=== PATIENT | female | born 1995 | race Two or more races ===

== ENCOUNTER 2024-02-03 10:38 | Emergency (ER) | payer MEDICAID, SELFPAY ==
[2024-02-03 11:01] VITALS: BP 123/87; PULSE 83; RESP 19; TEMP 36.9; O2SAT 98; BMI 27.8
--- NOTE | 2024-02-03 11:09 | XR_ITS ---
Examination: Abdomen sonogram, Limited Date and time of exam: February 03, 2024 1203 hours INDICATIONS: Onset epigastric pain radiating to the back beginning last night and worse today Technique: Real-time lechuga scale transabdominal sonographic images of the upper abdomen obtained. Findings: Multiple tiny gallstones Gallbladder wall is thickened 0.8 cm with edema Common bile duct 0.3 cm Pancreatic head 2.3 cm Liver 12.9 cm no focal liver lesions Normal hepatopedal portal venous oh Patent IVC IMPRESSION: Acute calculus cholecystitis, consider MRCP follow-up
--- NOTE | 2024-02-03 11:09 | PD.EDRME ---
Rapid Medical Screening Exam RME Arrival date/time: 02/03/24 10:38 28-year-old female presents to the emergency department complains of upper abdominal pain Chief Complaint: Abdominal Pain Time Seen by Provider: 02/03/24 10:41 Vital signs: Vital Signs Temperature 98.4 F 02/03/24 11:01 Pulse Rate 83 02/03/24 11:01 Respiratory Rate 19 02/03/24 11:01 Blood Pressure 123/87 H 02/03/24 11:01 Pulse Oximetry (%) 98 02/03/24 11:01 Oxygen Delivery Method Room Air 02/03/24 11:01
[2024-02-03 11:43] LABS: Basophils # (Auto) 0.1 Thou/mm3 (0.0-0.2); Basophils % (Auto) 1 % (0-2.5); Eosinophils # (Auto) 0.1 Thou/mm3 (0.0-0.5); Eosinophils % (Auto) 1 % (0-10); Hematocrit 40.6 % (36.0-46.0); Hemoglobin 13.7 g/dL (12.0-16.0); Immature Granulocytes % (Auto) 0 % (0-0); Immature Granulocytes Auto 0.03 Thou/mm3 (0.00-0.00); Lymphocytes # (Auto) 1.4 Thou/mm3 (1.0-4.8); Lymphocytes % (Auto) 16 % (10-50); Mean Corpuscular HGB Conc 33.7 g/dl (31.0-37.0); Mean Corpuscular Hemoglobin 29.2 pg (25.0-35.0); Mean Corpuscular Volume 87 fL (80-100); Monocytes # (Auto) 0.5 Thou/mm3 (0.0-0.8); Monocytes % (Auto) 5 % (0-12); Neutrophils # (Auto) 6.6 Thou/mm3 (1.8-7.7); Neutrophils % (Auto) 76 % (37-80); Nucleated Red Blood Cell % 0 /100 WBC (0); Platelet Count 425 Thou/mm3 (140-440); RDW Standard Deviation 38.5 fL (36.4-46.3); Red Blood Count 4.69 Miln/mm3 (4.00-5.20); White Blood Count 8.7 Thou/mm3 (3.6-11.0)
[2024-02-03 12:01] LABS: Alanine Aminotransferase 13 U/L (10-49); Albumin, Serum 4.8 gm/dL (3.5-5.0); Albumin/Globulin Ratio 1.5 (1.2-2.2); Alkaline Phosphatase 99 U/L (46-116); Anion Gap 7 (7-16); Aspartate Amino Transferase 17 U/L (0-34); BUN/Creatinine Ratio 12 Ratio (12-20); Bilirubin,Total 0.5 mg/dL (0.3-1.2); Blood Urea Nitrogen 7 mg/dL (9-23); Calcium 9.6 mg/dL (8.3-10.6); Calcium (Corrected) 9.6 mg/dL (8.5-10.1); Carbon Dioxide 23.2 mMol/L (20.0-31.0); Chloride 105 mMol/L (98-107); Creatinine (Component) 0.6 mg/dL (0.6-1.3); Estimated Creatinine Clearance 114.3 mL/min (>60); Globulin 3.1 gm/dL (2.3-3.5); Glucose 92 mg/dL (74-106); Lipase 39 U/L (12-53); Osmolality,Calculated 268 (275-295); Potassium 4.7 mMol/L (3.4-5.1); Sodium 135 mMol/L (136-145); Total Protein 7.9 gm/dL (5.7-8.2); eGFR > 60 See Note
[2024-02-03 13:14] LABS: Collection Type, Urine Clean Catch
[2024-02-03 13:28] LABS: Bacteria,Urine Rare; Bilirubin,Urine Negative (Negative); Blood,Urine Negative (Negative); Clarity,Urine Clear (Clear/Hazy); Color,Urine Colorless (Lt Yel-Yel); Culture Indicated,Urine Not Indicated; Glucose, Urine Negative (Negative); Ketones,Urine Negative (Negative); Leukocyte Esterase,Urine Positive (Negative); Nitrite,Urine Negative (Negative); Protein,Urine Negative (Neg - Trace); RBC,Urine < 1 /hpf (0-3); Specific Gravity,Urine 1.006 (1.001-1.035); Squamous Epithelial Cell,Urine 4 /hpf (0-5); Urobilinogen,Urine Negative mg/dL (0.0-1.0); WBC,Urine 3 /hpf (0-5)
--- NOTE | 2024-02-03 13:28 | PD.EDADULT ---
ED General RME/HPI General Chief complaint: Abdominal Pain Stated complaint: stomach pain radiating to back Time Seen by Provider: 02/03/24 10:41 Arrival date/time: 02/03/24 10:38 CC: Epigastric right upper quadrant abdominal pain onset 1 year ago but worse early this morning after eating possibly last night denies any nausea vomiting actually currently feels better patient has been in the waiting room for 2.5 hours. Patient denies any nausea or vomiting. Is seen by [facility] for primary care provider. Patient appears in mild discomfort but not in any acute distress. RME / HPI RME / HPI narrative: 02/03/24 10:38 28-year-old female presents to the emergency department complains of upper abdominal pain Related Data Home Medications ?Medication ?Instructions ?Recorded ?Confirmed vits no.124-ferrous fum 1 tab PO QDAY 05/09/18 03/31/21 27 mg iron-folic acid 800 mcg tablet ( Vitamin) Previous Rx's ?Medication ?Instructions ?Recorded ibuprofen 800 mg tablet 800 mg PO Q8H PRN pain #30 tabs 04/01/21 acetaminophen 500 mg capsule 1,000 mg (2 x 500 mg) PO TID #30 12/04/22 caps ibuprofen 600 mg tablet 600 mg PO TID PRN pain #30 tabs 12/04/22 meloxicam 7.5 mg tablet 7.5 mg PO QDAY #10 tabs 02/03/24 ondansetron 4 mg disintegrating 4 mg PO Q8H #14 tabs 02/03/24 tablet Allergies Allergy/AdvReac Type Severity Reaction Status Date / Time No Known Allergies Allergy Verified 02/03/24 10:38 Review of Systems Review of Systems Narrative Review of Systems: GEN: No fever, no chills, no weight loss EYES: No discharge, no visual changes, no pain HEENT: No ear pain, no congestion, no sore throat PULM: No shortness of breath, no cough, no congestion CV: No chest pain, no dyspnea on exertion, no palpitations GI: No nausea, no vomiting, no diarrhea, + pain, no constipation : No frequency, no urgency, no dysuria MUSC/SKEL: No joint pain, no back pain SKIN: No rash PSYCH: No hallucinations, no depression HEME/LYMPH: No easy bleeding or bruising tendencies NEURO: No weakness, no headache Past Medical History Past Medical History NEUROLOGIC: Negative Neurological Disorders CARDIAC: Negative Cardiac Disorders or Congestive Heart Failure RESPIRATORY: Negative Chronic Obstructive Pulmonary Disease (COPD) GASTROINTESTINAL: Negative Gastrointestinal Disorders, Hepatitis or Colorectal Cancer GENITOURINARY: Negative Genitourinary Disorders, Renal Disease or Prostate Cancer REPRODUCTIVE: Positive Genital Herpes and Previous Pregnancies; Negative Breast Cancer, Endometriosis, Gonorrhea, Pelvic Inflammatory Disease, Syphilis, Testicular Cancer or Uterine Prolapse MUSCULOSKELETAL: Negative Musculoskeletal Disorders or Bone Cancer ENDOCRINE: Negative Endocrine Disorders, Diabetes Mellitus Type 1 or Diabetes Mellitus Type 2 HEMATOLOGIC: Positive Anemia; Negative Blood Disorders OTHER HISTORY: Positive Hospitalization; Negative Autoimmune Disease, Down Syndrome, Developmental Delay, Shingles, Falls, Blood Transfusions, Blood Transfusion Reaction, Anesthesia Reactions, Organ Transplant, Chemotherapy, Radiation Therapy, Hyperbaric Therapy, MRSA, VRSA, Vancomycin-Resistant Enterococci, Human Immunodeficiency Virus (HIV), Chicken Pox, Measles, Mumps, Rubella (Mauritanian Measles), Pertussis, Clostridium Difficile, Cancer, Breast Cancer, Cervical Cancer, Colorectal Cancer, Lung Cancer, Ovarian Cancer, Prostate Cancer or Testicular Cancer Family History FAMILY HISTORY: Positive Family Cancer; Negative Family Psychiatric Problems, Family Respiratory Disorders, Family Cardiac Disorders, Family Gastrointestinal Problems, Family Surgery or Family Anesthesia Reaction Surgical History SURGICAL: Negative Section or Organ Transplant Social History SMOKING STATUS: Never smoker SECOND HAND EXPOSURE: No SUBSTANCE USE: does not use ED Exam Narrative Physical exam: [General: Obese in mild discomfort but not in any acute distress Head normocephalic HEENT: Within acceptable limits Neck is supple nontender Chest equal chest rise nontender to palpation Respiratory: Clear to auscultation no wheezes crackles or rubs CV: Rate rhythm is regular no murmurs rubs or clicks Abdomen mild epigastric right upper quadrant abdominal pain no reflexive guarding or rebound tenderness. Back: No CVA tenderness no spinous process tenderness from cervical spine thoracic and lumbar spine Skin: Intact no petechiae rash induration ulceration or crepitus Extremities: Moving all extremities against resistance cap refill less than 2 seconds neurosensory intact Neuro: Awake alert oriented x3 Glascow coma 15 no focal deficits] Course Quality Measures none Orders Category Date Time Status US gall bladder Stat Exams 02/03/24 11:09 Completed CBC Stat Lab 02/03/24 11:29 Completed Comprehensive Metabolic Panel Stat Lab 02/03/24 11:29 Completed HCG Qualitative,Urine Stat Lab 02/03/24 12:54 Completed Lipase Stat Lab 02/03/24 11:29 Completed UA, C/S IF [Urinalysis, C/S if Indicated] Stat Lab 02/03/24 12:54 Completed Vital Signs Vital signs: Vital Signs Temperature 98.4 F 02/03/24 11:01 Pulse Rate 83 02/03/24 11:01 Respiratory Rate 19 02/03/24 11:01 Blood Pressure 123/87 H 02/03/24 11:01 Pulse Oximetry (%) 98 02/03/24 11:01 Oxygen Delivery Method Room Air 02/03/24 11:01 [facility] Patient data External records reviewed:: [facility] previous records Clinical information provided by:: patient Social determinants that could affect healthcare access:: none Patient has the following chronic illnesses:: None How is presenting disease/condition affected by chronic disease/condition?: uneffected by Evaluation data The following diagnostics were reviewed and interpreted by me:: lab results and radiology exam(s) Lab and/or radiology exams considered but not ordered:: CBC shows no leukocytosis anemia thrombocytopenia CMP shows no acute electrolyte imbalances renal impairment transaminitis or T. bili elevation Ultrasound shows multiple small stones gallbladder wall thickened at 0.8 cm no CBD dilatation IVC is patent Interpretation Summary: Patient's case discussed with Dr. Carmona states patient can follow-up outpatient. Medications Medications considered but not ordered:: None Medication administrations:: None Consultations Consultation(s) initiated? (list below): No Diagnosis Differential Diagnosis ED Complaint MDM: Cholecystitis cholelithiasis choledocholithiasis Most likely diagnosis given after review of the tests above:: Cholecystitis Admission Indicated Admission indicated?: not indicated Explain why admission is indicated or not indicated:: Stable for outpatient follow-up Admission Request Was there a request for admission?: No Disposition Plan Disposition Plan: Discharge Discharge Attestation Discharge Attestation: The patient and all family members were given an opportunity to ask questions and understood the discharge instructions. Discharge instructions specifically effects, indications for sooner follow up or return to the emergency department, and the expected course of current diagnosis. Patient condition: Stable Medical Decision Making Differential Diagnosis Differential Diagnosis: Cholecystitis cholelithiasis choledocholithiasis Lab Data 02/03/24 11:29 02/03/24 11:29 Labs: Lab Results 02/03/24 02/03/24 Range/Units 11:29 12:54 WBC 8.7 (3.6-11.0) Thou/mm3 RBC 4.69 (4.00-5.20) Miln/mm3 Hgb 13.7 (12.0-16.0) g/dL Hct 40.6 (36.0-46.0) % MCV 87 (80-100) fL MCH 29.2 (25.0-35.0) pg MCHC 33.7 (31.0-37.0) g/dl RDW Std Deviation 38.5 (36.4-46.3) fL Plt Count 425 (140-440) Thou/mm3 Neut % (Auto) 76 (37-80) % Lymph % (Auto) 16 (10-50) % Wilcox % (Auto) 5 (0-12) % Eos % (Auto) 1 (0-10) % Baso % (Auto) 1 (0-2.5) % Neut # (Auto) 6.6 (1.8-7.7) Thou/mm3 Lymph # (Auto) 1.4 (1.0-4.8) Thou/mm3 Wilcox # (Auto) 0.5 (0.0-0.8) Thou/mm3 Eos # (Auto) 0.1 (0.0-0.5) Thou/mm3 Baso # (Auto) 0.1 (0.0-0.2) Thou/mm3 Immature Gran # (Auto) 0.03 H (0.00-0.00) Thou/mm3 Absolute Nucleated RBC 0.00 (0.00-0.00) Thou/mm3 Immature Gran % 0 (0-0) % Nucleated RBC % 0 (0) /100 WBC Sodium 135 L (136-145) mMol/L Potassium 4.7 (3.4-5.1) mMol/L Chloride 105 (98-107) mMol/L Carbon Dioxide 23.2 (20.0-31.0) mMol/L Anion Gap 7 (7-16) BUN 7 L (9-23) mg/dL Creatinine 0.6 (0.6-1.3) mg/dL Estim Creat Clear Calc 114.3 (>60) mL/min eGFR > 60 (60 - ) See Note BUN/Creatinine Ratio 12 (12-20) Ratio Glucose 92 (74-106) mg/dL Calculated Osmolality 268 L (275-295) Calcium 9.6 (8.3-10.6) mg/dL Corrected Calcium 9.6 (8.5-10.1) mg/dL Total Bilirubin 0.5 (0.3-1.2) mg/dL AST 17 (0-34) U/L ALT 13 (10-49) U/L Alkaline Phosphatase 99 (46-116) U/L Total Protein 7.9 (5.7-8.2) gm/dL Albumin 4.8 (3.5-5.0) gm/dL Globulin 3.1 (2.3-3.5) gm/dL Albumin/Globulin Ratio 1.5 (1.2-2.2) Lipase 39 (12-53) U/L Ur Collection Type Clean Catch Urine Color Colorless A (Lt Yel-Yel) Urine Clarity Clear (Clear/Hazy) Urine pH 6.0 (5.0-7.0) Ur Specific [place] 1.006 (1.001-1.035) Urine Protein Negative (Neg - Trace) Urine Glucose (UA) Negative (Negative) Urine Ketones Negative (Negative) Urine Blood Negative (Negative) Urine Nitrite Negative (Negative) Urine Bilirubin Negative (Negative) Urine Urobilinogen (Auto) Negative (0.0-1.0) mg/dL Ur Leukocyte Esterase Positive (Negative) Urine RBC < 1 (0-3) /hpf Urine WBC 3 (0-5) /hpf Ur Squamous Epith Cells 4 (0-5) /hpf Urine Bacteria Rare (None) Ur Culture Indicated? Not Indicated Urine HCG, Qual Negative Discharge Plan Plan Patient Disposition: HOME (Self Care) Patient condition on transfer: Stable Prescriptions/Referrals Prescriptions/Med Rec: New ondansetron 4 mg tablet,disintegrating 4 mg PO Q8H Qty: 14 0RF meloxicam 7.5 mg tablet 7.5 mg PO QDAY Qty: 10 0RF No Action Vitamin 27 mg iron- 800 mcg Tablet 1 tab PO QDAY ibuprofen 800 mg tablet 800 mg PO Q8H PRN (Reason: pain) Qty: 30 0RF ibuprofen 600 mg tablet 600 mg PO TID PRN (Reason: pain) Qty: 30 0RF acetaminophen 500 mg capsule 1,000 mg PO TID Qty: 30 0RF Referrals: Chris Carmona MD [Physician] - In 1 week Sam Aburto MD [Primary Care Provider] - In 1 week Problem List Clinical Impression: Right upper quadrant abdominal pain, Cholelithiasis Patient/Caregiver Discharge Instructions Education Materials: What Are Gallstones, Treating Gallstones Additional Instructions: Take the medications as prescribed follow-up with the surgeon listed above if there is a worsening of symptoms return the emergency room medially for further evaluation. Print Language: Cuban Stand Alone Forms: Hansa Award Info., Work/School Release, Patient Portal Info Letter MD Attestation Attestation The patient was seen by the midlevel practitioner. I, the co-signing physician, was present during the entire ER visit. While I did not physically examine the patient, I was available for consultation as needed.
[2024-02-03 13:38] LABS: HCG Qualitative,Urine Negative
[2024-02-03 15:30] VITALS: BP 115/83; PULSE 70; RESP 16; TEMP 36.8; O2SAT 98
== END 2024-02-03 14:30 | disposition home or self-care (01) ==
PROVIDERS: Nurse Practitioner Primary Care; Emergency Provider Emergency Medicine; PCP Family Medicine
DX: K80.20 Calculus of gallbladder without cholecystitis without obstruction (principal)
CPT/HCPCS: 36415; 76705; 80053; 81001; 81025; 83690; 85025; 99284